=== PATIENT | male | born 1990 | race Hispanic/Latino ===

== ENCOUNTER 2019-02-21 10:03 | Inpatient (IN) | payer OTHER ==
[~2019-02-21] VITALS: Ht 167.6 cm; Wt 88.6 kg
[2019-02-21] MEDS ORDERED: CYCL10TA PO (10:30)
[2019-02-21] MEDS ORDERED: OMEP40CA2 PO (10:30)
[2019-02-21 11:24] LABS: HEMATOCRIT 42.9 % (42.0-52.0); HEMOGLOBIN 14.5 g/dl (13.5-17.5); MEAN CORPUSCULAR HEMOGLOBIN 29.4 pg (27.0-33.0); MEAN CORPUSCULAR HGB CONC 33.8 g/dl (32.0-36.5); PLATELET COUNT, AUTOMATED 194 10^3/uL (150-450); RED BLOOD COUNT 4.93 10^6/uL (4.30-6.10); WHITE BLOOD COUNT 6.5 10^3/uL (4.0-10.0)
[2019-02-21 11:56] LABS: ALBUMIN 3.9 GM/DL (3.2-5.2); ALT/SGPT 33 U/L (12-78); BILIRUBIN,DIRECT < 0.1 MG/DL (0.0-0.2); BILIRUBIN,TOTAL 0.3 MG/DL (0.2-1.0); BLOOD UREA NITROGEN 13 MG/DL (7-18); CALCIUM LEVEL 8.5 MG/DL (8.5-10.1); CARBON DIOXIDE LEVEL 28 MEQ/L (21-32); CHLORIDE LEVEL 108 MEQ/L (98-107); CREATININE FOR GFR 1.24 MG/DL (0.70-1.30); ETHYL ALCOHOL (ETHANOL) < 0.003 % (0.000-0.010); GLOMERULAR FILTRATION RATE > 60.0 (>60); GLUCOSE, FASTING 87 MG/DL (70-100); POTASSIUM SERUM 4.2 MEQ/L (3.5-5.1); SALICYLATE LEVEL < 1.7 MG/DL (5.0-30.0); SODIUM LEVEL 142 MEQ/L (136-145); TOTAL PROTEIN 7.6 GM/DL (6.4-8.2)
[2019-02-21 11:57] LABS: ACETAMINOPHEN LEVEL < 2.0 UG/ML (10.0-30.0)
[2019-02-21] MEDS ORDERED: OMEP-218 PO (12:52)
[2019-02-21] MEDS ORDERED: ACET500T15 PO (12:52)
[2019-02-21 13:40] LABS: AMPHETAMINES LEVEL URINE NEGATIVE (NEGATIVE); BARBITURATES URINE NEGATIVE (NEGATIVE); BENZODIAZEPINES URINE NEGATIVE (NEGATIVE); CANNABINOIDS URINE NEGATIVE (NEGATIVE); COCAINE METABOLITE URINE NEGATIVE (NEGATIVE); METHADONE URINE NEGATIVE (NEGATIVE); OPIATES URINE NEGATIVE (NEGATIVE); PHENCYCLIDINE URINE NEGATIVE (NEGATIVE)
[2019-02-21] MEDS ORDERED: MAALOX 30 ML SUSP *UDC PO PRN (14:00)
[2019-02-21] MEDS ORDERED: MOM 30ML SUSPENSION UDC PO PRN (14:00)
[2019-02-22 07:00] VITALS: BP 128/67
--- NOTE | 2019-02-22 11:12 | MHHPEPDOC ---
General Date Of Admission: Feb 21, 2019 Legal Status: 9.39 Chief Complaint "I have no specific plan to kill myself but I still want to ." History of Present Illness HISTORY OF THE PRESENT ILLNESS: Patient is a 28 -year-old , AD, male, with no previous psych history who was sent to ED after seen as walk-in at [facility] endorsing hopelessness and SI in the ED. Pt stated in the ED "I have no specific plan to kill myself but I still want to . He endorsed hopelessness, helplessness, and SI in the ED. Pt stated in the ED that his main stressors are ETS 06/29 after 8yrs of service, debt accumulation, baby on the way, marital problems, and problems with his command. Per ED, pt has been seen at [facility] since 10/30 after returning from deployment from [place] for "deployment related i ssues." Psychiatric Review of Systems Depression (2 or more weeks): depressed mood, difficulty concentrating, suicidal thoughts Vilma (4 or more days of): denies Psychosis: denies PTSD: history of trauma Anxiety: situational anxiety Anxiety/ 6 months or more of: restlessness, keyed up, difficulty concentrating, irritability Past Psychiatric History Previous Psychiatric Diagnosis: depression Previous Psychiatric Admissions: denies Suicide Attempts: denies Psychiatric Follow-up: [facility] Psychiatric medications: none Past Medical History Medical Problems denies Head Injury: No Seizures: No Hospitalizations: No Surgeries: No Family Medical/Psychiatric HX Medical Problems noncontributory Psychiatric Disorders: No Addiction: No Suicide Attemps/Completions: No Addiction History alcohol (wkends socially), denies Social History Childhood: born and raised in [place], 2 parent home, siblings, good childhood, would like to return to [place] after ETS Abuse/Trauma: deployment [place] for 3mo with return 10/30 Current Living Situation: [place] Education: high school grad. 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 Social Support: Legal: denies Marital: , 2y/o son and with second child Mental Status Examination General Appearance: well groomed, appears stated age, hospital scubs/clothing, other (b/l arm tatoos) Build: average Demeanor: withdrawn Eye Contact: fair Activity: slowed Behavior: cooperative, withdrawn Speech: clear, normal volume, reg/rate,rhythm,volume Mood: depressed, anxious Mood "stressed" Affect: constricted, flat, congruent, anxious Thought Process: logical/linear, depressed, intact Thought Content (Delusions): none reported, denies SI, HI, AVH Thought Content (Other): none reported, preoccupied (finances and debt), appropriate Thought Content (Aggressive): none reported Perception (Hallucinations): none reported Perception (Other): none reported Cognition (Impairment of): none reported Cognition(Intelligence Est.): average Oriented: Awake, Alert, Oriented times three Insight: fair Judgment: Fair Psychosis: Denies Diagnoses Depression Unspecified R/O adjustment d/o with depression and anxiety A-FIB/CHADSVASC A-FIB History Current/History of A-Fib/PAF?: No Current PO Anticoag Therapy: No Treatment Treatment ordered: NONE Reason Anticoagulant not given: Not indicated/Digpk2sagr Assessment Pt seen and states he's here due to having SI due to psychosocial stress that include "life, finances, and marital problems" mostly related to ETS in 06/29. Hasn't come up with a decision regarding his future once he's out of the as well as how he's going to pay all his debt off from credit cards and 2 car loans. Feels hopeless. States he has job possibilities once he's out of the but hasn't made a decision yet as if continues to spend money and not work. 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 States if things continue with he can't continue to be to his . States enjoys work as it is a way for him to avoid his stressors. Wants to be a music publicist and is looking into affordable programs for himself. Uncertain whether he wants to divorce his or not due to his children. Does not want to start medication and would like to try therapy first. Initial Treatment Plan 1. Patient was admitted on a 9.39 status. 2. Complete history was obtained. 3. With patients permission, family will be contacted and database will be expanded. 4. Patients medication regimen will be reviewed and changed accordingly. 5. Patient will be provided with protected environment. 6. Patient will be treated with individual, group, and milieu therapies. 7. Patient will receive supportive psych-education. 8. Discharge planning will commence immediately. 9. Outpatient follow-up treatment will be strongly recommended. 10. The initial treatment plan will focus initially on: * Depression. * Risk for suicide. * Substance abuse. 11. vistaril 25mg q6hr prn anxiety ESTIMATED LENGTH OF STAY: 5-7 DAYS. TIME SPENT COUNSELING AND COORDINATING INITIAL CARE: 60 minutes. Vital Signs Vital Signs Date Time Temp Pulse Resp B/P (MAP) Pulse Ox O2 Delivery O2 Flow Rate FiO2 02/22/19 07:00 97.6 79 16 128/67 (87) 02/21/19 18:57 98 Room Air Laboratory Data 24H Labs Laboratory Tests 2 02/21/19 11:01: Nucleated Red Blood Cells % (auto) 0.0, Anion Gap 6L, Glomerular Filtration Rate > 60.0, Calcium Level 8.5, Aspartate Amino Transf (AST/SGOT) 20, Alanine Aminotransferase (ALT/SGPT) 33, Alkaline Phosphatase 89, Total Bilirubin 0.3, Direct Bilirubin < 0.1, Total Protein 7.6, Albumin 3.9, Albumin/Globulin Ratio 1.05, Thyroid Stimulating Hormone (TSH) 1.070, Salicylates Level < 1.7L, Urine Amphetamines Screen NEGATIVE, Urine Benzodiazepines Screen NEGATIVE, Urine Opiates Screen NEGATIVE, Urine Methadone Screen NEGATIVE, Acetaminophen Level < 2.0L, Urine Barbiturates Screen NEGATIVE, Urine Phencyclidine Screen NEGATIVE, Urine Cocaine Metabolite Screen NEGATIVE, Urine Cannabinoids Screen NEGATIVE, Ethyl Alcohol Level < 0.003 CBC/BMP Laboratory Tests 02/21/19 11:01 Red Blood Count 4.93, Mean Corpuscular Volume 87.0, Mean Corpuscular Hemoglobin 29.4, Mean Corpuscular Hemoglobin Concent 33.8, Red Cell Distribution Width 12.5 Medications Scheduled Omeprazole (Omeprazole) 20 Mg Capsule.dr, 20 MG PO DAILY, (Reported) Scheduled PRN Acetaminophen (Acetaminophen) 500 Mg Tablet, 1,000 MG PO Q6H PRN for PAIN, (Reported) Cyclobenzaprine HCl (Cyclobenzaprine HCl) 10 Mg Tablet, 10 MG PO Q8H PRN for MUSCLE SPASMS, (Reported) Allergies Coded Allergies: No Known Allergies (Unverified , 02/21/19) LINNEA PRINCE DO Feb 22, 2019 11:12
[2019-02-22] MEDS: ACETAMINOPHEN TAB 650MG DOSE (2X325MG) PO PRN (12:00)
--- NOTE | 2019-02-22 15:18 | HPEPDOC ---
General Date of Admission Feb 21, 2019 at 13:56 Date of Service: Feb 22, 2019 Attending Physician: WISAM SAMANO MD Chief Complaint The patient is a 28-year-old male admitted with a reason for visit of Depressive Disorder. History of Present Illness Patient is a 28-year-old male, admitted on account of suicidal ideation. Patient has a past medical history significant for depression, anxiety, PTSD. He denies any prior medical history, denies any chest pain, shortness of breath, weakness, nausea, chills, fever, diarrhea, abdominal pain. Home Medications Scheduled Omeprazole (Omeprazole) 20 Mg Capsule.dr, 20 MG PO DAILY, (Reported) Scheduled PRN Acetaminophen (Acetaminophen) 500 Mg Tablet, 1,000 MG PO Q6H PRN for PAIN, (Reported) Cyclobenzaprine HCl (Cyclobenzaprine HCl) 10 Mg Tablet, 10 MG PO Q8H PRN for MUSCLE SPASMS, (Reported) Allergies Coded Allergies: No Known Allergies (Unverified , 02/21/19) Past Medical History Medical History Depression, anxiety, PTSD Surgical History none. Family History Denies Social History denies tobacco, drinks alcohol weekends, denies substance abuse. A-FIB/CHADSVASC A-FIB History Current/History of A-Fib/PAF?: No Current PO Anticoag Therapy: No Review of Systems Other systems A pertinent 10 point review of systems was completed, negative except as stated in history of presenting illness Physical Examination General Exam: Positive: Alert, Cooperative, No Acute Distress Eye Exam: Positive: PERRLA, Conjunctiva & lids normal, EOMI ENT Exam: Positive: Atraumatic, Mucous membr. moist/pink, Pharynx Normal, Tongue Midline Neck Exam: Positive: Supple, +2 carotid pulse wo bruit; Negative: JVD, thyromegaly Chest Exam: Positive: Clear to auscultation, Normal air movement; Negative: Rales, Rhonchi, Wheezing Heart Exam: Positive: Rate Normal, Regular Rhythm Abdomen Exam: Positive: Soft; Negative: Tenderness Extremity Exam: Positive: Normal pulses; Negative: Clubbing, Cyanosis, Edema Skin Exam: Positive: Nl turgor and temperature; Negative: Rash, Breakdown Neuro Exam: Positive: Normal Speech, Strength at 5/5 X4 ext, Normal Tone, Cranial Nerves 3-12 NL Psych Exam: Positive: Oriented x 3; Negative: Anxiety Vital Signs Vital Signs Date Time Temp Pulse Resp B/P (MAP) Pulse Ox O2 Delivery O2 Flow Rate FiO2 02/22/19 07:00 97.6 79 16 128/67 (87) 02/21/19 18:57 98 Room Air Assessment/Plan Depression Suicidal ideation Plan Management by primary team Patient has no underlying comorbidities requiring medical evaluation or management Please reconsult medical team as needed Plan / VTE VTE Prophylaxis Ordered?: No VTE Exclusion Mechanical Proph: Low Risk for VTE AMY DELEONP Feb 22, 2019 15:18
[2019-02-22 18:38] VITALS: BP 136/79
[2019-02-23] MEDS: ACETAMINOPHEN TAB 650MG DOSE (2X325MG) PO PRN (06:48)
[2019-02-23 06:50] VITALS: BP 112/74
--- NOTE | 2019-02-23 08:21 | MHIPNPDOC ---
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 VITAL SIGNS: See below. NEW TEST RESULTS: None. CURRENT MEDICATIONS: See below. MENTAL STATUS EXAMINATION: Patient is a 28-year old male, who is, admitted for suicidal thoughts of regarding his numerous stressors of debt new baby, marital issues and difficulties with [employer] command due to failure to pass PE. Speech: Is quiet. Language skills are, intact. Thought processes including:. No gross hallucinations or delusions. Thought content:. No gross distortions. Abstract reasoning, and computation: Intact. Description of associations:. No loose associations. Description of abnormal or psychotic thoughts:. No abnormal or psychotic thought noted. Judgment: Fair. Insight:. Fair. Orientation: 3. Recent and remote memory:, No distortions or abnormalities. Attention span and concentration:, Intact. Language:, As above. Fund of knowledge:, Full. Mood:, Euthymic. Affect:, Flat. DIAGNOSES: 1. Dysthymia. 2. Numerous stressors. . ASSESSMENT: This patient has some symptoms of dysthymia and depression but does not want to be treated with antidepressants MANAGEMENT PLAN: Observation and continued interview. TIME SPENT:, 35 minutes. Vital Signs Vital Signs Date Time Temp Pulse Resp B/P (MAP) Pulse Ox O2 Delivery O2 Flow Rate FiO2 02/23/19 06:50 97.9 51 14 112/74 (87) 02/21/19 18:57 98 Room Air Current Medications Current Medications Acetaminophen (Tylenol Tab) 650 mg Q6HP PRN PO HEADACHE or DISCOMFORT Last administered on 02/23/19at 06:48; Start 02/21/19 at 14:00 Al Hydrox/Mg Hydrox/Simethicone (Mylanta) 30 ml Q4HP PRN PO HEARTBURN/INDIGESTION; Start 02/21/19 at 14:00 Home Med (Med Rec Complete!) ASDIRECTED XX ; Start 02/21/19 at 13:00; Stop 02/21/19 at 13:00; Status DC Magnesium Hydroxide (Milk Of Magnesia) 30 ml DAILYPRN PRN PO CONSTIPATION; Start 02/21/19 at 14:00 Trazodone HCl (Desyrel) 50 mg QHSP PRN PO INSOMNIA; Start 02/21/19 at 14:00 Allergies Coded Allergies: No Known Allergies (Unverified , 02/21/19) DAINA AVILA MD Feb 23, 2019 08:21
[2019-02-23 18:00] VITALS: BP 130/59
[2019-02-23] MEDS: traZODone 50 MG TAB PO PRN (21:36)
[2019-02-24 06:34] VITALS: BP 137/64
--- NOTE | 2019-02-24 11:03 | MHIPNPDOC ---
[facility] Progress Note Progress Note DATE OF SERVICE: 02/24/19 HISTORY: 28-year-old with marital and financial problems states today. I despise my . VITAL SIGNS: See below. NEW TEST RESULTS: None. CURRENT MEDICATIONS: See below. MENTAL STATUS EXAMINATION: Patient is a 28-year old male, who is considering divorce and is denying suicidal ideation today. Speech: Is, intact. Language skills are, intact. Thought processes including:. Denies hallucinations, delusions, obsessions, compulsions, phobias. Thought content:, As above. Abstract reasoning, and computation:, Able to abstract. Description of associations: Was associations. Description of abnormal or psychotic thoughts:. No psychotic thought noted. Judgment: Fair. Insight: fair. Orientation: 3. Recent and remote memory:. No disturbance. Attention span and concentration:. No disturbance. Language: Intact. Fund of knowledge:. Full. Mood: Euthymic. Affect:, Flat. DIAGNOSES: 1. Dysthymia. 2., Marital stressors. 3., Financial stressors. ASSESSMENT: Patient not interested in taking antidepressant medication and his home situation does not have a resolution at this time MANAGEMENT PLAN:. Further observation and history. TIME SPENT: 35 minutes. Vital Signs Vital Signs Date Time Temp Pulse Resp B/P (MAP) Pulse Ox O2 Delivery O2 Flow Rate FiO2 02/24/19 06:34 98.2 70 18 137/64 (88) 02/21/19 18:57 98 Room Air Current Medications Current Medications Acetaminophen (Tylenol Tab) 650 mg Q6HP PRN PO HEADACHE or DISCOMFORT Last administered on 02/23/19at 06:48; Start 02/21/19 at 14:00 Al Hydrox/Mg Hydrox/Simethicone (Mylanta) 30 ml Q4HP PRN PO HEARTBURN/INDIGESTION; Start 02/21/19 at 14:00 Home Med (Med Rec Complete!) ASDIRECTED XX ; Start 02/21/19 at 13:00; Stop 02/21/19 at 13:00; Status DC Magnesium Hydroxide (Milk Of Magnesia) 30 ml DAILYPRN PRN PO CONSTIPATION; Start 02/21/19 at 14:00 Trazodone HCl (Desyrel) 50 mg QHSP PRN PO INSOMNIA Last administered on 02/23/19at 21:36; Start 6/13/19 at 14:00 Allergies Coded Allergies: No Known Allergies (Unverified , 02/21/19) DAINA AVILA MD Feb 24, 2019 11:03
[2019-02-24] MEDS: ACETAMINOPHEN TAB 650MG DOSE (2X325MG) PO PRN (17:02)
[2019-02-24 18:00] VITALS: BP 140/70
[2019-02-25 06:15] VITALS: BP 142/67
[2019-02-25] MEDS: ACETAMINOPHEN TAB 650MG DOSE (2X325MG) PO PRN ×2 (09:43→21:08)
--- NOTE | 2019-02-25 10:38 | MHIPNPDOC ---
[facility] Progress Note Progress Note DATE OF SERVICE: 02/25/19 HISTORY: Patient is a 28 -year-old , AD, male, with no previous psych history who was sent to ED after seen as walk-in at [facility] endorsing hopelessness and SI in the ED. Pt stated in the ED "I have no specific plan to kill myself but I still want to . He endorsed hopelessness, helplessness, and SI in the ED. Pt stated in the ED that his main stressors are ETS 06/29 after 8yrs of service, debt accumulation, baby on the way, marital problems, and problems with his command. Per ED, pt has been seen at [facility] since 10/30 after returning from deployment from [place] for "deployment related issues." VITAL SIGNS: See below. NEW TEST RESULTS: See below. CURRENT MEDICATIONS: See below. MENTAL STATUS EXAMINATION: General Appearance: well groomed, appears stated age, hospital scrubs/clothing, other (b/l arm tatoos) Build: average Demeanor: cooperative Eye Contact: fair Activity: average Behavior: cooperative Speech: clear, normal volume, reg/rate,rhythm,volume Mood: less depressed, less anxious Mood "better" Affect: less constricted, congruent Thought Process: logical/linear, less depressed, intact Thought Content (Delusions): none reported, denies SI, HI, AVH Thought Content (Other): none reported, less preoccupied (finances and debt), appropriate Thought Content (Aggressive): none reported Perception (Hallucinations): none reported Perception (Other): none reported Cognition (Impairment of): none reported Cognition(Intelligence Est.): average Oriented: Awake, Alert, Oriented times three Insight: fair Judgment: Fair Psychosis: Denies DIAGNOSES: Depression Unspecified R/O adjustment d/o with depression and anxiety ASSESSMENT:Pt seen and states that his mood is better today he wants to start marital counseling when he leaves to improve their relationship. States she would like that too. 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 States he slept well last night with trazodone. Feels he is tolerating his medications and they're beneficial. He is attending groups and finding them help ful. He denies SI/HI, hallucinations, delusions. Pt feels safe here. MANAGEMENT PLAN: continue plan. Medications: vistaril 25mg q6hr prn anxiety trazodone 50mg qhs prn insomnia TIME SPENT: 30 minutes. Vital Signs Vital Signs Date Time Temp Pulse Resp B/P (MAP) Pulse Ox O2 Delivery O2 Flow Rate FiO2 02/25/19 06:15 97.7 69 16 142/67 (92) 02/21/19 18:57 98 Room Air Current Medications Current Medications Acetaminophen (Tylenol Tab) 650 mg Q6HP PRN PO HEADACHE or DISCOMFORT Last administered on 02/24/19at 17:02; Start 02/21/19 at 14:00 Al Hydrox/Mg Hydrox/Simethicone (Mylanta) 30 ml Q4HP PRN PO HEARTBURN/INDIGESTION; Start 02/21/19 at 14:00 Home Med (Med Rec Complete!) ASDIRECTED XX ; Start 02/21/19 at 13:00; Stop 02/21/19 at 13:00; Status DC Magnesium Hydroxide (Milk Of Magnesia) 30 ml DAILYPRN PRN PO CONSTIPATION; Start 02/21/19 at 14:00 Trazodone HCl (Desyrel) 50 mg QHSP PRN PO INSOMNIA Last administered on 02/23/19at 21:36; Start 02/21/19 at 14:00 Allergies Coded Allergies: No Known Allergies (Unverified , 02/21/19) LINNEA PRINCE DO Feb 25, 2019 9:18 am
[2019-02-25 18:08] VITALS: BP 133/61
[2019-02-25] MEDS: traZODone 50 MG TAB PO PRN (21:07)
[2019-02-26 06:37] VITALS: BP 124/57
[2019-02-26] MEDS ORDERED: TRAZ-252 PO (08:26)
--- NOTE | 2019-02-26 08:26 | MHDSPDOC ---
[facility] Discharge Summary Discharge Summary DATE OF ADMISSION: Feb 21, 2019 at 1:56 pm DATE OF DISCHARGE: Feb 26, 2019 DISCHARGE DIAGNOSES: Depression Unspecified R/O adjustment d/o with depression and anxiety REASON FOR ADMISSION: Patient is a 28 -year-old , AD, male, with no previous psych history who was sent to ED after seen as walk-in at [facility] endorsing hopelessness and SI in the ED. Pt stated in the ED "I have no specific plan to kill myself but I still want to . He endorsed hopelessness, helplessness, and SI in the ED. Pt stated in the ED that his main stressors are ETS 06/29 after 8yrs of service, debt accumulation, baby on the way, marital problems, and problems with his command. Per ED, pt has been seen at [facility] since 10/30 after returning from deployment from [place] for "deployment related issues." CONSULTANTS INVOLVED: none TREATMENT AND PROGRESS ON THE UNIT : Pt was admitted to [facility], seen for psychiatric assessment and monitored for safety. He was provided vistaril 25mg q6hr prn anxiety and trazodone 50mg qhs prn insomnia. Pt found his medications beneficial and tolerated them well. He attended groups daily during his stay. His symptoms improved with treatment. On day of discharge he denied depression, anxiety, insomnia, SI/HI, hallucinations, delusions. He was discharged home after Vince meeting with follow-up at [facility]. He felt safe for discharge. DISCHARGE ASSESSMENT: Pt seen and states that his mood is good and states he's looking forward to going home today and starting marital counseling with his to improve their relationship. States she would like that too. 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 States he slept well last night with trazodone. Feels he is tolerating his medications and they're beneficial. He is attending groups and finding them helpful. He denies depression, anxiety, insomnia, SI/HI, hallucinations, delusions. Pt feels safe to be discharged home with his Vince. MENTAL STATUS EXAMINATION ON DISCHARGE: General Appearance: well groomed, appears stated age, hospital scrubs/clothing, other (b/l arm tatoos) Build: average Demeanor: cooperative Eye Contact: good Activity: average Behavior: cooperative Speech: clear, normal volume, reg/rate,rhythm,volume Mood: euthymic, full Mood "good" Affect: euthymic, full, congruent Thought Process: logical/linear, intact Thought Content (Delusions): none reported, denies SI, HI, AVH Thought Content (Other): none reported, appropriate Thought Content (Aggressive): none reported Perception (Hallucinations): none reported Perception (Other): none reported Cognition (Impairment of): none reported Cognition(Intelligence Est.): average Oriented: Awake, Alert, Oriented times three Insight: good Judgment: good Psychosis: Denies MEDICATIONS ON DISCHARGE: trazodone 50mg qhs prn insomnia PLAN/FOLLOWUP ARRANGEMENTS: D/c home with follow-up at [facility]. The amount of time spent in the coordination of care for this patient was approximately 30 minutes. Vital Signs/I&Os Vital Signs Date Time Temp Pulse Resp B/P (MAP) Pulse Ox O2 Delivery O2 Flow Rate FiO2 02/26/19 06:37 98.1 65 14 124/57 (79) 02/21/19 18:57 98 Room Air Medications Scheduled Omeprazole (Omeprazole) 20 Mg Capsule.dr, 20 MG PO DAILY, (Reported) Scheduled PRN Acetaminophen (Acetaminophen) 500 Mg Tablet, 1,000 MG PO Q6H PRN for PAIN, (Re ported) Cyclobenzaprine HCl (Cyclobenzaprine HCl) 10 Mg Tablet, 10 MG PO Q8H PRN for MUSCLE SPASMS, (Reported) Allergies Coded Allergies: No Known Allergies (Unverified , 02/21/19) LINNEA PRINCE DO Feb 26, 2019 8:26 am
[2019-02-26] MEDS: ACETAMINOPHEN TAB 650MG DOSE (2X325MG) PO PRN (08:50)
== END 2019-02-26 10:50 | disposition home or self-care (01) | DRG 881 ==
LOC: M ED 10:03 → M ED INP 13:56 → M PSY 18:57
PROVIDERS: ADMIT Psychiatry & Neurology Psychiatry; ATTEND Psychiatry & Neurology Psychiatry
DX: F32.9 Major depressive disorder, single episode, unspecified (principal); F43.23 Adjustment disorder with mixed anxiety and depressed mood; Z63.0 Problems in relationship with spouse or partner; Z56.4 Discord with boss and workmates; Z91.82 Personal history of military deployment; Z59.9 Problem related to housing and economic circumstances, unspecified; Z79.899 Other long term (current) drug therapy